=== PATIENT | male | born 1950 | race Caucasian/White ===

== ENCOUNTER 2016-12-01 21:08 | Emergency (ER) | payer OTHER ==
[~2016-12-01] VITALS: Ht 180.3 cm; Wt 134.8 kg
[~2016-12-01 21:08] MED LIST: APAP/HYDROCODON1 T13 PO; CIP500 PO; COLACE100 MG PO; GABAPENTIN100 M2 PO; GLU500 PO; JANUVIA PO; LAC PO; LEVAQUIN750 MG; LEVOFLOXACIN500 M1 PO; LISINOPRIL10 MG PO; MIRALAX17 GM/Dose PO; MOT400 PO; ULTRAM50 MG PO
[2016-12-01 22:23] LABS: microscopic required? NO
[2016-12-01 22:27] LABS: urine erythrocyte NEGATIVE (NEGATIVE)
[2016-12-01 22:29] LABS: BASOPHIL % 0.1 % (0-2); PLATELET COUNT 166 x10^3mcL (130-400)
[2016-12-01 22:31] LABS: RED CELL DISTRIBUTION WIDTH 14.7 % (11.5-14.5)
[2016-12-01 22:45] LABS: CALCIUM 9.5 mg/dL (8.5-10.1); CARBON DIOXIDE 27.3 mmol/L (21-32); CREATININE SERUM 1.3 mg/dL (0.7-1.3); POTASSIUM SERUM 4.1 mmol/L (3.5-5.1)
[2016-12-01 22:49] LABS: ALBUMIN 3.7 g/dL (3.4-5.0); BILIRUBIN TOTAL 0.47 mg/dL (0.20-1.00); TOTAL PROTEIN, SERUM 7.1 g/dL (6.4-8.2)
[2016-12-02 01:00] VITALS: BP 121/79
== END 2016-12-02 01:00 | disposition home or self-care (01) ==
LOC: ED 21:08
PROVIDERS: Emergency Medicine
DX: M54.5 Low back pain (principal); R91.1 Solitary pulmonary nodule; E11.40 Type 2 diabetes mellitus with diabetic neuropathy, unspecified; Z96.659 Presence of unspecified artificial knee joint; Z98.890 Other specified postprocedural states
CPT/HCPCS: J1815; J1885